=== PATIENT | male | born 1960 | race Caucasian/White ===

== ENCOUNTER 2021-11-12 00:57 | Outpatient (CLI) | payer BC, SELFPAY ==
--- NOTE | 2021-11-12 11:00 | DI.NM_ITS ---
APPROVED REPORT Exam: Pharmacologic Patient Location: Out-Patient Room/Bed: Stress Nurse: Halle Lee RN Ordering Provider:PARAS JC MD Contact Number: [phone] BMI: 34.43 Baseline Rhythm: Sinus Rhythm Comment: Abnormal R wave progression, flipped T waves leads III, V3, V4 Indications: High Troponin I level, abnormal plasma proteins Medical History Medical History: Hypertension, asthma, COPD, smoker (current), obesity, ulcerative diverticulitis, [place] (07/2021), recent emergency abdominal surgery (10/2021), per pt cardiac arrest in hospital Cardiac Medications: Aspirin, entresto, farxiga, metoprolol succinate, potassium chloride, symbicort, albuterol sulfate Allergies: NKDA Cardiac Risk Factors: Hypertension, asthma, COPD, smoker (current), obesity, family hx Previous Cardiac Procedures: None Pretest Chest Pain Characteristics: None Exercise History: Sedentary Physical Disabilities: Knees Lung Sounds: Clear to auscultation Heart Sounds: Regular Stress Test Details Test: Exercise stress converted to pharmacologic stress due to failure to obtain a diagnostic stress test. Reason for pharmacologic stress test: changed from exercise stress test due to inability to reach t arget heart rate due to physical limitation.. Nuclear Acquisition: Rest Tc-99m/Stress Tc-99m 1 day Rest Isotope: Tc-99m Sestamibi. Dose: 11.5 Date: 11/12/2021 Injection Time: 1125 Stress Isotope: Tc-99m Sestamibi. Dose: 36.7 Date: 11/12/2021 Injection Time: 1300 HR Resting HR Supine: 63 bpm Max Heart Rate (APMHR): 158.804759 bpm Resting HR Standin bpm Target HR (85% APMHR): 134.679168 bpm Max HR Achieved: 101 bpm % of APMHR: 63.92 Recovery HR: 79 bpm Comment: Metoprolol succinate not held BP Resting BP Supine: 110/74 mmHg Resting BP Standin/90 mmHg Max BP: 134/84 mmHg Recovery BP: 122/84 mmHg ECG Resting ECG: Sinus Rhythm Ectopy: None Comment: Abnormal R wave progression, flipped T waves leads III, V3, V4 Stress ECG: Sinus Rhythm, Sinus Tachycardia ST Change: No significant ST segment changes noted, Nondiagnostic low heart rate Arrhythmia: None, None, APC's, VPC's, Atrial fibrillation, SVT, Non-sustained VT Recovery ECG: Sinus Rhythm Recovery ST Change: No significant ST segment changes noted, Nondiagnostic low heart rate Recovery Arrhythmia: None Clinical Stress Symptoms: General Fatigue, Dyspnea Rate Pressure Product: [id number] Stress ECG Conclusion 1. Resting electrocardiogram showed poor R wave progression, nondiagnostic ST-T abnormalities 2. Patient underwent testing using a combination of low-level exercise and pharmacologic stress with regadenoson 3. Peak heart rate achieved was 63% of predicted for age 4. Electrocardiographically the test was nondiagnostic due to inadequate heart rate 5. Multiple brief dysrhythmias were described including atrial and ventricular premature beats, nonsu stained ventricular tachycardia, atrial runs Stress Test Summary STAGE Time (mins) Speed (mph) Grade (%) HR BP SYMPTOMS METS Supine 63 110/74 Standing 71 124/90 SpO2 93% 1 3 1.7 10 92 SpO2 98% 4.6 1 min post Lexiscan injection 98 128/80 Moderate SOB, dizziness, SpO2 98% 3 min post Lexiscan injection 85 134/84 Symptoms resolved, SpO2 98% 6 min post Lexiscan injection 79 122/84 SpO2 98% Exercise stress test converted to pharmacologic stress test at 1:30 due to patient physical limitatio n and exercise intolerance to obtain THR. Pt maintained low level exercise at 0.3 - 0.6mph and 0% gra de during Regadenoson administration. Pt tolerated testing with medication and low level exericse wel l. MPI Conclusion Normal myocardial perfusion without evidence of ischemia or prior infarction EF 43% Wall motion appears normal Radiologist Interpretation Radiologist Interpretation by: Tony Pagan MD Interpretation Date/Time: 11/12/2021 15:31:30
[2021-11-12] MEDS: Regadenoson 0.4 MG/5 ML SYR IVP (13:32)
== END 2021-11-12 01:17 ==
PROVIDERS: PCP Internal Medicine Interventional Cardiology; Visit Provider Internal Medicine Interventional Cardiology
DX: R74.8 Abnormal levels of other serum enzymes (principal); R77.9 Abnormality of plasma protein, unspecified
CPT/HCPCS: 78452; 93017; J2785